=== PATIENT | male | born 1955 | race Two or more races ===

== ENCOUNTER 2022-05-19 19:14 | Emergency (ER) | payer OTHER ==
[~2022-05-19] VITALS: Ht 180.3 cm; Wt 95.5 kg
[2022-05-19] MEDS ORDERED: KETOROLAC TROMETH 30 MG/ML 1ML VIAL IV ONE (23:00)
[2022-05-20 01:10] VITALS: BP 162/84
== END 2022-05-20 01:23 | disposition home or self-care (01) ==
LOC: ER 19:14 → EDBD 19:14 → ER 05-20 01:15
DX: M79.605 Pain in left leg (principal); M79.18 Myalgia, other site; R60.9 Edema, unspecified; W10.9XXA Fall (on) (from) unspecified stairs and steps, initial encounter; Y93.89 Activity, other specified; Y92.89 Other specified places as the place of occurrence of the external cause; Y99.8 Other external cause status
CPT/HCPCS: 72170; 73552; 73562; 93005; 96374; 99284; J1885